=== PATIENT | male | born 1995 | race Two or more races ===

== ENCOUNTER 2023-03-29 00:35 | Emergency (ER) | payer OTHER ==
[~2023-03-29] VITALS: Ht 182.9 cm; Wt 84.0 kg
[2023-03-29 00:40] VITALS: TEMP 98.3
[2023-03-29] MEDS ORDERED: CEPHALEXIN MONOHYDRATE 500 MG CAPSULE PO ONE (01:45)
[2023-03-29] MEDS ORDERED: IBUPROFEN 600 MG TABLET PO ONE (01:45)
[2023-03-29] MEDS ORDERED: PERTUSS(ACELL),DIPH,TET VAC/PF 0.5 ML SYRINGE IM. ONE (01:45)
[2023-03-29] MEDS ORDERED: CEPH-556 PO (01:47)
[2023-03-29 02:04] VITALS: BP 129/67; PULSE 61; RESP 17
== END 2023-03-29 02:05 | disposition home or self-care (01) ==
LOC: EMS 00:35
DX: S62.631A Displaced fracture of distal phalanx of left index finger, initial encounter for closed fracture (principal); S61.231A Puncture wound without foreign body of left index finger without damage to nail, initial encounter; X58.XXXA Exposure to other specified factors, initial encounter; Y93.89 Activity, other specified; Y92.89 Other specified places as the place of occurrence of the external cause; Y99.8 Other external cause status
CPT/HCPCS: 90471; 90715; 99283